=== PATIENT | male | born 1980 | race Caucasian/White ===

== ENCOUNTER → 2020-05-06 | Outpatient (CLI) | payer OTHER ==
[~2020-05-06] MED LIST: ALDACTONE 25MG25 MG PO; ASPIRIN EC81 MG PO; ATORVASTATIN CA20 MG PO; ATORVASTATIN CA40 MG PO; CEFUROXIME500 MG PO; CLARITIN 10MG T10 MG PO; COZAAR 25MG TAB25 MG PO; CYCLOBENZAPRINE10 MG PO; DIGOXIN250 MCG PO; FLONASE 0.05% N16 GM; FUROSEMIDE20 MG PO; HYDROCODON-ACE1 EAC4 PO; LEVAQUIN500 MG PO; METOPROLOL SUCC25 MG PO; METOPROLOL SUCC50 MG PO; NORCO 5-325 TA1 EACH PO; POTASSIUM CHLO10 MEQ PO; POTASSIUM CHLO20 ME1 PO; POTASSIUM CHLO20 ME2 PO; TOPROL XL 25 MG25 MG PO; VOLTAREN EC 5050 MG PO
== END ==
LOC: HEART 5 04-22 13:30
DX: I50.22 Chronic systolic (congestive) heart failure (principal); R93.1 Abnormal findings on diagnostic imaging of heart and coronary circulation; I08.1 Rheumatic disorders of both mitral and tricuspid valves; Z95.0 Presence of cardiac pacemaker
CPT/HCPCS: 93306